=== PATIENT | female | born 1980 | race American Indian/Alaskan Native ===

== ENCOUNTER 2021-12-16 06:51 | Observation (INO) | payer OTHER, MEDICAID ==
[2021-12-14 11:25] LABS: Hemoglobin 11.5 gm/dl (10.1-14.3); Mean Corpuscular HGB Conc 31 % (30-34); Mean Corpuscular Volume 82 fl (79-97); Platelet Count 297 K/mm3 (140-440); Red Blood Count 4.51 M/mm3 (3.65-5.03); Red Cell Distribution Width 15.3 % (13.2-15.2)
[2021-12-14 11:51] LABS: Blood Urea Nitrogen 11 mg/dL (7-17); Calcium 9.3 mg/dL (8.4-10.2); Hemolysis Index 1
[2021-12-14 11:57] LABS: BUN/Creatinine Ratio 18
--- NOTE | 2021-12-15 08:52 | History and Physical Report ---
History of Present Illness Date of examination: 12/14/21 Chief complaint: Pelvic pain History of present illness: Pt is a 41 year old presents for surgical management of pelvic pain aft er failed medical management. Pelvic ultrasound in August 2021 revealed a complex left ovarian cyst. Past History Past Medical History: thyroid disease (Hypothyroidism on Synthroid 100 mcg daily ) Past Surgical History: TEACHER ADVISOR/uterine surgery (supracervical abdominal hysterectomy, RSO on 07/09/2015), thyroid TEACHER ADVISOR History: fibroids, other (endometriosis) Social history: no significant social history - Obstetrical History : 4 Para: 2 Hx # Term Pregnancies: 2 Number of Pregnancies: 0 Spontaneous Abortions: 0 Induced : 2 Number of Living Children: 2 Medications and Allergies Allergies Allergy/AdvReac Type Severity Reaction Status Date / Time acetaminophen [From Percocet] Allergy Hallucinate Verified 12/10/21 18:44 s oxycodone [From Percocet] Allergy Hallucinate Verified 12/10/21 18:44 s Home Medications Medication Instructions Recorded Confirmed Last Taken Type Levothyroxine (Nf) [Synthroid] 150 mcg PO QAM 07/01/15 12/10/21 07/08/15 08:[address] [Voltaren Dr] 75 mg PO DAILY 12/10/21 12/10/21 Unknown History Ibuprofen [Motrin 600 MG tab] 800 mg PO Q8H PRN 12/10/21 12/10/21 Unknown History Multivitamin [Multiple Vitamins] 1 each PO DAILY 12/10/21 12/10/21 Unknown History Topiramate [Topamax] 100 mg PO DAILY 12/10/21 12/10/21 Unknown History Active Meds: Active Medications Lactated Ringer's (Lactated Ringers) 1,000 mls @ 75 mls/hr IV DIRECT KIAN Cefazolin Sodium (Ancef/Sterile Water 2 Gm/20 Ml) 2 gm in 20 mls @ 80 mls/hr IV PREOP NR; Protocol Review of Systems All systems: negative - Vital Signs Vital signs: Vital Signs Temp Pulse Resp BP Pulse Ox 98.9 F 68 16 127/83 99 12/10/21 11:00 12/10/21 11:00 12/10/21 11:00 12/10/21 11:00 12/10/21 11:00 Temp Pulse Resp BP Pulse Ox 98.9 F 68 16 127/83 99 12/10/21 11:00 12/10/21 11:00 12/10/21 11:00 12/10/21 11:00 12/10/21 11:00 - Physical Exam Breasts: Positive: deferred Abdomen: Positive: soft (obese ) Uterus: Positive: other Extremities: Positive: normal Results Result Diagrams: 12/14/21 10:52 12/14/21 06:00 Abnormal lab results 12/14/21 Range/Units 10:52 MCH 26 L (28-32) pg RDW 15.3 H (13.2-15.2) % All other labs normal. Assessment and Plan A: Pelvic Pain Endometriosis Suspected Adhesive Disease Left Ovarian Cyst Obesity Hypothyroidism P: Proceed with laparoscopy, left ovarian cystectomy, possible left oophorectomy, possible lysis of adhesions, possible exploratory laparotomy, and other indicated procedures
[~2021-12-16 06:51] MED LIST: ceFAZolin/Water 2 GM/20 ML 2 GM/20 ML SYRINGE IV NR
[2021-12-16] MEDS ORDERED: BUPIVACAINE/PF (0.5%) 5 MG/1 ML 30 ML VIAL INFILTRATI ONE ×3 (07:34→09:18)
--- NOTE | 2021-12-16 07:35 | Anesthesia Day of Surgery ---
Anesthesia Day of Surgery - Day of Surgery Patient Examined: Yes Patient H&P Reviewed: Yes Patient is NPO: Yes
--- NOTE | 2021-12-16 07:38 | Anesthesia Consultation ---
Anesthesia Consult and Med Hx Date of service: 12/16/21 - Airway Anesthetic Teeth Evaluation: Crowns ROM Head & Neck: Adequate Mental/Hyoid Distance: Adequate Mallampati Class: Class II Intubation Access Assessment: Probably Good - Pre-Operative Health Status ASA Pre-Surgery Classification: ASA3 Proposed Anesthetic Plan: General - Pulmonary Hx Smoking: No Hx Asthma: No Hx Respiratory Symptoms: No (+2FS) COPD: No Hx Pneumonia: No Hx Sleep Apnea: Yes (No CPAP) - Cardiovascular System Hx Hypertension: No Hx Coronary Artery Disease: No (Pt reports negative stress test 05/2019) - Central Nervous System Hx Seizures: Yes (x1 only when 8 mos ) Hx Psychiatric Problems: No - Gastrointestinal Hx Gastroesophageal Reflux Disease: No - Endocrine Hx Renal Disease: No Hx End Stage Renal Disease: No Hx Non-Insulin Dependent Diabetes: No Hx Thyroid Disease: Yes (s/p thyroidectomy) Hx Hypothyroidism: Yes - Hematic Hx Anemia: Yes Hx Sickle Cell Disease: No - Other Systems Hx Alcohol Use: Yes (Occas) Hx Cancer: No Hx Obesity: Yes
[2021-12-16] MEDS ORDERED: CELECOXIB 200 MG CAP PO NR (08:00)
[2021-12-16] MEDS ORDERED: MIDAZOLAM 2 MG/2 ML INJ IV NR (08:00)
[2021-12-16] MEDS ORDERED: ACETAMINOPHEN 500 MG TAB PO SCH (08:00)
[2021-12-16] MEDS: LACTATED RINGERS 1,000 ML IV SCH ×2 (08:00→16:41)
[2021-12-16] MEDS ORDERED: ROCURONIUM 50 MG/5 ML INJ IV ONE ×2 (08:45→11:26)
[2021-12-16] MEDS ORDERED: dexAMETHasone 20 MG/5 ML VIAL ONE (08:45)
[2021-12-16] MEDS ORDERED: propofoL 200 MG/20 ML VIAL IV ONE (08:45)
[2021-12-16] MEDS ORDERED: LIDOCAINE MPF (2%) 20 MG/1 ML VIAL 5 ML ONE (08:45)
[2021-12-16] MEDS ORDERED: MAGNESIUM OXIDE 400 MG TAB PO SCH (09:00)
[2021-12-16] MEDS ORDERED: HYDROmorphone 1 MG/1 ML INJ IV PRN (09:00)
[2021-12-16] MEDS ORDERED: ONDANSETRON 4 MG/2 ML INJ IV PRN (09:00)
[2021-12-16] MEDS ORDERED: WATER FOR IRRIG STERILE 1,500 ML BOTTLE IR ONE (09:18)
[2021-12-16] MEDS ORDERED: SODIUM CHLORIDE 0.9% IRR 1,500 ML BOTTLE IR ONE (09:18)
[2021-12-16] MEDS ORDERED: SODIUM CHLORIDE 0.9% IRRIG SOLN 2000 ML IR ONE (10:10)
[2021-12-16] MEDS ORDERED: KETOROLAC 30 MG/1 ML INJ ONE (11:27)
[2021-12-16] MEDS ORDERED: PHENYLEPHRINE/NS 1,000 MCG/10 ML SYRINGE (OR USE) IV ONE (11:32)
--- NOTE | 2021-12-16 11:58 | Event Note ---
Date: 12/16/21 Called for intraoperative consult on patient who is scheduled to undergo a left nephrectomy. The patient has a history of prior abdominal surgery and was noted to have adhesions from the bowel to the left ovary. General surgery consulted for assistance with lysis of adhesions. Upon arrival to the OR Dr. Lepe in the process of making a Pfannenstiel incision in order to access the abdomen. Once through the fascia it was noted there was omental adhesions to the fascia. These were taken down bluntly and with the use of cautery with great care to avoid injury to the underlying small bowel. No injuries were identified. Once the incision was able to be open satisfactorily a large Boby wound protector was placed into the wound and the bowel packed into the mid abdomen. The left ovary was identified. Adhesions from the left ovary to the retroperitoneum along with the adjacent large bowel were identified. A clear plane was identified between the structures and the adhesions taken down using a combination of blunt dissection and sharp dissection with the Metzenbaum scissors. Once the ovary was completely freed from the surrounding bowel and retroperitoneum, a Left oophorectomy was performed by Dr. Lepe and Dr. Bobo (please see separate note). Patient remained stable in OR and completion of procedure performed by Dr. Lepe and [facility].
[2021-12-16] MEDS ORDERED: NEOSTIGMINE 10MG/10 ML INJ MDV ONE (12:03)
[2021-12-16] MEDS ORDERED: GLYCOPYRROLATE 0.4 MG/2 ML INJ ONE (12:03)
[2021-12-16] MEDS ORDERED: LACTATED RINGERS 1,000 ML ONE (12:04)
--- NOTE | 2021-12-16 12:37 | Operative Report ---
Operative Report Operative Report: Date of Procedure: December 16, 2021 Preoperative Diagnosis: 1) Pelvic Pain 2) Left Ovarian Cyst 3) Endometriosis 4) Obesity Postoperative Diagnosis: Same 5) Intraabdominal Adhesions Procedure: 1) Diagnostic Laparoscopy 2) Exploratory Laparotomy 3) Left Oophorectomy 4) Lysis of Adhesions Surgeon: Magalie Lepe MD Hand Inserter Operator: Wen Bobo MD Intraoperative Consult: Hillary Young MD, General Surgery Anesthesia: GETA Findings: 1) Uterus and right ovary and fallopian tube absent due to prior hysterectomy, right salpingo-oophorectomy 2) Chocolate-filled cyst ~2 cm in left ovary 3) Left ovary adherent to bowel posteriorly 4) Omental adhesions to the anterior abdominal wall EBL: 75 mL Urine output: Clear at the end of the procedure Specimen: Left ovary to pathology Complications: None. Counts correct x 2 Disposition: Stable to PACU Indication for Procedure: This pt is a 41 year old who presents for surgical management of pelvic pain after failed medical management and a complex left ovarian cyst with a history of endometriosis. Operation In Detail: After the risks, benefits, complications and alternatives were explained to the patient, she gave informed consent for the procedure. She was then taken to the operating room and placed in the dorsal supine position with her IV noted to be running well and SCDs in place and functioning. General endotracheal anesthesia was induced without difficulty. The patient was then placed in the dorsal lithotomy position and prepped and draped in a normal sterile fashion, including estevez catheter placement. A time out was then performed. A sponge stick was placed in the patient's vagina. The surgeon's gloves were then changed. Attention was then turned to entry into the abdominal cavity. A 5 mm incision was made with an 11 blade 4 cm superior to the umbilicus. The skin was grasped on either side of the umbilicus with towel clamps and tented up. The Veres needle was placed into the peritoneal cavity, confirmed with a saline drop test. The abdomen was then insufflated with CO2 gas to a pressure of 15 mmHg. A 5 mm optical trocar was then placed under direct visualization. An anatomic survey was then performed with findings as indicated above. A second trocar site was created in LLQ lateral to the rectus muscles. A 5 mm trocar was placed under direct visualization. A third 5 mm trocar was placed in the RLQ under direct visualization, lateral to the rectus muscles. The patient was placed in the Trendelenburg position. At this time, a large omental adhesion to the anterior abdominal wall was noted to be obscuring view of the pelvis. A 5 mm LigaSure device was used to transect this adhesion. Hemostasis was noted. At this time the left ovary was noted to be cystic and to be adherent to the bowel posteriorly. The determination between ovarian tissue and bowel could not be delineated laparoscopically. Therefore in the interest of patient safety the laparoscopic approach was abandoned and the decision was made to proceed with exploratory laparotomy. All laparoscopic instruments and the laparoscopic trocars were removed from the abdomen atraumatically. At this time the decision was made to consult general surgeon Dr. Young for assistance in dissection of the bowel off of the ovarian tissue. A Pfannenstiel skin incision was made with a knife and carried down to the layer of the fascia with the Bovie. The fascia was incised in the midline with the Bovie and the fascial incision was extended bilaterally. The superior edge of the incision was grasped with 2 Kochers, tented up and dissected off the rectus muscles with the Bovie. The inferior edge of the fascia was grasped with 2 Kochers, and dissected off the rectus muscle with the Bovie. The peritoneum was entered sharply between 2 Nicolasa clamps. The rectus muscles were partially transected for adequate visualization. The bowel was packed away with moist laps and Boby retractor was placed. Dr. Young joined the case at this time and assisted with dissection of the bowel away from the ovarian tissue. After this, Dr. Young left the case. At this time the left infundibulopelvic ligament was visible and free from the surrounding tissue. It was doubly clamped with Nicolasa clamps, and the left ovary was excised and handed off to pathology. The pedicle was secured with a free tie of 0 Vicryl, followed by a stitch of 0 Vicryl. All instruments were removed. The peritoneal cavity was irrigated and hemostasis was noted. Surgicel was placed over the remaining pedicle. The peritoneum and rectus muscles were reapproximated with 2-0 chromic in a running fashion. The fascia was reapproximated with 0 Vicryl in a running locked fashion. The subcutaneous tissue was reapproximated with 3-0 Monocryl in an interrupted fashion. The Pfannenstiel skin incision was reapproximated with mary. A pressure dressing was placed over this incision. Next, attention was turned to reapproximation of the laparoscopic incisions. Each of these 3 incisions was infiltrated with half percent Marcaine. Each incision was then reapproximated with 3-0 Monocryl in a subcuticular fashion and then covered with skin glue. The sponge stick was then removed from the vagina atraumatically, and the Estevez catheter was removed. At this time the procedure was ended. The patient was placed into the dorsal supine position and extubated without difficulty. She was subsequently taken to the PACU in stable condition. All instrument, needle and lap counts were correct 2. The patient will be admitted for observation.
[2021-12-16] MEDS: HYDROmorphone 1 MG/1 ML INJ IV PRN ×4 (12:55→20:11)
[2021-12-16] MEDS ORDERED: D5W/LACTATED RINGERS 1,000 ML IV SCH (13:00)
[2021-12-16] MEDS ORDERED: ACETAMINOPHEN 325 MG TAB PO PRN (13:00)
[2021-12-16] MEDS ORDERED: MORPHINE 4 MG/1 ML INJ IV PRN (13:00)
[2021-12-16] MEDS ORDERED: NALOXONE 0.4 MG/1 ML INJ IV PRN (13:00)
[2021-12-16] MEDS ORDERED: ONDANSETRON 4 MG ODT TAB PO PRN (13:00)
[2021-12-16] MEDS ORDERED: MORPHINE 2 MG/1 ML INJ IV PRN (13:00)
[2021-12-16] MEDS: HYDROcodone/ACETAMINOPHEN 5-325 MG TAB PO PRN (15:36)
[2021-12-16] MEDS: IBUPROFEN 800 MG TAB PO SCH (15:40)
--- NOTE | 2021-12-16 16:55 | Post Anesthesia Evaluation ---
- Post Anesthesia Evaluation Patient Participated: Yes Airway Patent: Yes Stable Respiratory Function: Yes Nausea/Vomiting: No Temp > 96.8F: Yes Pain Manageable: Yes Adequeate Hydration: Yes Anesthesia Complications: No Block Receding Appropriately: Not Applicable Patient on Ventilator: No
[2021-12-16] MEDS: ceFAZolin/NS 1 GM/50 ML 1 GM/50 ML BAG IV SCH (17:58)
[2021-12-16] MEDS: KETOROLAC 30 MG/1 ML INJ IV SCH (18:41)
[2021-12-17] MEDS: HYDROmorphone 1 MG/1 ML INJ IV PRN ×2 (00:34→06:07)
[2021-12-17] MEDS: KETOROLAC 30 MG/1 ML INJ IV SCH ×2 (00:36→06:06)
[2021-12-17] MEDS: IBUPROFEN 800 MG TAB PO SCH ×2 (00:42→09:44)
[2021-12-17] MEDS: ceFAZolin/NS 1 GM/50 ML 1 GM/50 ML BAG IV SCH (03:30)
[2021-12-17 06:24] LABS: Hematocrit 31.9 % (30.3-42.9); Hemoglobin 10.3 gm/dl (10.1-14.3)
--- NOTE | 2021-12-17 08:29 | Progress Note ---
Assessment and Plan A: POD#1 s/p diagnostic laparoscopy, ex lap, LSO, lysis of adhesions Pelvic Pain Endometriosis Suspected Adhesive Disease Left Ovarian Cyst Obesity Hypothyroidism P: Routine postop care Discharge home with follow up in 1 wk for staple removal Subjective - Subjective Date of service: 12/17/21 Principal diagnosis: s/p diagnostic laparoscopy, ex lap, left oophorectomy, lysis of adhesions Interval history: Pt is feeling better today, but has been dissatisfied with the hospital staff since her surgery. She wants to go home this morning. Patient reports: voiding normally, pain well controlled, flatus, ambulating normally, no bowel movement Objective - Vital Signs Latest vital signs: Vital Signs Temp Pulse Resp BP Pulse Ox 12/17/21 06:07 18 12/17/21 06:06 20 12/17/21 04:25 98.1 F 71 18 109/71 95 12/17/21 04:00 63 L 12/17/21 01:06 20 12/17/21 01:04 20 12/17/21 00:42 20 12/16/21 23:48 98.6 F 69 18 110/68 96 12/16/21 21:56 75 12/16/21 19:47 98.4 F 65 20 105/66 100 12/16/21 16:00 97 12/16/21 15:41 97.3 F L 78 18 122/75 100 12/16/21 15:00 97.4 F L 85 15 99/58 95 12/16/21 14:15 97.8 F 72 17 108/65 96 12/16/21 14:00 72 18 108/61 97 12/16/21 13:45 74 19 101/61 96 12/16/21 13:35 16 12/16/21 13:30 98.6 F 70 16 105/55 96 12/16/21 13:25 15 12/16/21 13:15 75 15 101/63 94 12/16/21 13:05 19 12/16/21 13:00 69 18 115/69 100 12/16/21 12:55 12 12/16/21 12:45 85 20 107/59 99 12/16/21 12:40 86 20 117/73 99 12/16/21 12:35 83 22 120/64 95 12/16/21 12:30 97.8 F 81 23 97/55 96 12/16/21 09:08 18 Intake and Output 12/16/21 12/17/21 12/17/21 22:59 06:59 14:59 Intake Total 701.25 450 Balance 701.25 450 Intake: IV 701.25 ANCEF/NS 1 GM/50 ML 1 gm 50 In 50 ml @ 100 mls/hr IV Q8H KIAN Rx#:[id number] Lactated Ringers 1,000 ml 651.25 @ 75 mls/hr IV DIRECT KIAN Rx#:[id number] Oral 450 Other: Total, Intake Amount 450 Voiding Method External Female Catheter Toilet # Voids Void 425 Weight 105.233 kg - Exam Breasts: Present: deferred Abdomen: Present: soft (obese ) Extremities: Present: normal Incision: Present: intact (3 laparoscopic incisions with skin glue ), dressed (Pfannenstiel incision, with mary )
--- NOTE | 2021-12-17 08:33 | Discharge Summary ---
Providers - Providers Date of Admission: 12/16/21 13:01 Date of discharge: 12/17/21 Attending physician: SANDRA LEPE Primary care physician: ROSEMARIE ROSARIO Hospitalization Reason for admission: other (scheduled surgery ) Procedure details: Diagnostic laparoscopy, exploratory laparotomy, lysis of adhesions, left oophorectomy Incision: intact, dressed Discharge diagnosis: other Hospital course: This patient was admitted for surgical evaluation of pelvic pain and left ovarian cyst. She underwent diagnostic laparoscopy, exploratory laparotomy, left oophorectomy and lysis of adhesions which she tolerated well. She was admitted for observation overnight for pain control. By postoperative day #1 she met discharge criteria. She will follow-up in [address] Lepe for staple removal. Condition at discharge: Stable Disposition: HOME / SELF CARE / HOMELESS - Discharge Diagnoses (1) Obesity (BMI 30-39.9) Status: Acute (2) Hypothyroidism Status: Acute Qualifiers: Hypothyroidism type: unspecified Qualified Code(s): E03.9 - Hypothyroidism, unspecified (3) JOSE (obstructive sleep apnea) Status: Acute (4) Endometriosis Status: Acute (5) Pelvic pain Status: Acute Plan - Discharge Medications Prescriptions: Ibuprofen [Motrin] 800 mg PO Q8HR PRN #30 tablet PRN Reason: Pain, Moderate (4-6) HYDROcodone/APAP 5-325 [Cushing 5/325] 1 each PO Q6HR PRN #30 tablet PRN Reason: Pain - Provider Discharge Summary Activity: routine, no sex for 6 weeks, no heavy lifting 4 weeks, no strenuous exercise Diet: routine Instructions: routine Additional instructions: [] Smoking cessation referral if applicable(refer to patient education folder for contact #) [] Refer to [facility] Booklet Call your doctor immediately for: * Fever > 100.5 * Heavy vaginal bleeding ( >1 pad per hour) * Severe persistent headache * Shortness of breath * Reddened, hot, painful area to leg or breast * Drainage or odor from incision. * Keep incision clean and dry at all times and follow doctor's instructions regarding bathing/showering - Follow up plan Follow up: ROSEMARIE ROSARIO MD [Primary Care Provider] - 7 Days SANDRA LEPE MD [Staff Physician] - 7 Days
[2021-12-17 09:20] VITALS: BP 103/70
[2021-12-17] MEDS: HYDROcodone/ACETAMINOPHEN 5-325 MG TAB PO PRN (11:15)
--- NOTE | 2021-12-17 14:49 | Post Anesthesia Evaluation ---
- Post Anesthesia Evaluation Patient Participated: Yes Airway Patent: Yes Stable Respiratory Function: Yes Nausea/Vomiting: No Temp > 96.8F: Yes Pain Manageable: Yes Adequeate Hydration: Yes Anesthesia Complications: No Block Receding Appropriately: Not Applicable Other Comments: patient is being discharged home by Dr Fishman
== END 2021-12-17 16:00 | disposition home or self-care (01) ==
LOC: OR 06:51 → 4A 13:01
PROVIDERS: ADMIT Obstetrics & Gynecology; ATTEND Obstetrics & Gynecology
DX: N80.9 Endometriosis, unspecified (principal); Z20.822 Contact with and (suspected) exposure to COVID-19; R10.2 Pelvic and perineal pain; N83.202 Unspecified ovarian cyst, left side; E66.9 Obesity, unspecified; E03.9 Hypothyroidism, unspecified; G47.33 Obstructive sleep apnea (adult) (pediatric); Z79.899 Other long term (current) drug therapy; Z98.890 Other specified postprocedural states; Z68.39 Body mass index [BMI] 39.0-39.9, adult
CPT/HCPCS: 36415; 58661; 80048; 84703; 85014; 85018; 85027; 88305; 96365; 96366; 96375; 96376; G0378; J0690; J1100; J1170; J1815; J1885; J2250; J2370; J2405; J2704; J2710; J3490; J7120; J7121; U0003; J7060; Q0162

== ENCOUNTER 2022-01-14 10:04 | Outpatient (CLI) | payer MEDICAID, OTHER ==
--- NOTE | 2022-01-14 12:03 | Cat Scan Report ---
CT ABDOMEN AND PELVIS WITH IV CONTRAST INDICATION: PELVIC SWELLING/MASS OMNI 300 100 ML . COMPARISON: None available. TECHNIQUE: Axial CT images were obtained through the abdomen and pelvis after 100 mL Omnipaque [address] scans at this location are performed using CT dose reduction for ALARA by means of automated e xposure control. FINDINGS -- ABDOMEN: Lung Bases: No acute abnormality. Liver: Normal. Gallbladder: Normal. Bile Ducts: Normal. Pancreas: Normal. Spleen: Normal. Adrenals: Normal. Right Kidney and Proximal Ureter: Normal. Left Kidney and Proximal Ureter: Normal. Stomach and Bowel: Normal. Lymph Nodes: No significant adenopathy. Aorta: No significant abnormality. IVC: Normal. Additional Findings: None. FINDINGS -- PELVIS: Urinary Bladder and Distal Ureters: Normal. Reproductive Organs: The uterus appears attenuated. There is overlying soft tissue edema suspicious f or recent incision. There is increased heterogeneity involving the mesenteric fat anterior to the [place] l[place]shmi and urinary bladder.. Appendix: Normal. Bowel: No acute abnormality. Free Fluid: No drainable fluid collections within the pelvis identified.. Lymph Nodes: No significant adenopathy. Additional Findings: Diastases of the rectus abdominis muscle along the anterior lower pelvic wall.. Skeletal System: No acute abnormality. IMPRESSION: Prominent stranding/heterogeneity identified along the anterior lower pelvic fat/mesentery with overl emelina findings suspicious for possible recent procedure. In addition the uterus has an attenuated appe arance which could be seen with partial hysterectomy. No drainable fluid collections within the pelvi s are identified. There is mild diastases of the lower rectus abdominal muscles at the level of the a nterior lower pelvis. Signer Name: Miguel Houston MD Signed: 01/14/2022 11:56 AM Workstation Name: [id number]
== END 2022-01-14 10:05 | disposition home or self-care (01) ==
LOC: CT 10:04
PROVIDERS: ATTEND Obstetrics & Gynecology
DX: R19.00 Intra-abdominal and pelvic swelling, mass and lump, unspecified site (principal)
CPT/HCPCS: 74177; Q9967